=== PATIENT | female | born 1950 ===

== ENCOUNTER 2017-11-22 10:50 | Emergency (ER) | payer BC ==
[2017-11-22 10:57] VITALS: TEMP 98.1
[2017-11-22 12:34] VITALS: RESP 18
[2017-11-22 12:47] VITALS: BP 133/91; PULSE 76; O2SAT 98
--- NOTE | 2017-11-22 15:28 | ED PDOC ---
HPI: Back Time Seen by Provider: 11/22/17 11:20 Chief Complaint (Nursing): Back Pain Chief Complaint (Provider): Back Pain History Per: Patient History/Exam Limitations: no limitations Onset/Duration Of Symptoms: Days Current Symptoms Are (Timing): Still Present Quality Of Discomfort: "Pain" Associated Symptoms: None Exacerbating Factor(s): Movement Additional History Per: Family ( at bedside) Additional Complaint(s): 67 year old female with a history of sciatica for the past 4 years presents to the ED for evaluation of right lower back pain that radiates into the right leg. Patient took Duexis at 6am without any relief, promoting her to visit the ED. Denies fall, trauma, abdominal pain, chest pain, fever, chills, nausea, vomiting, diarrhea, urinary symptoms, saddle anesthesia, weakness/numbness, and incontinence. Patient states her current symptoms are consistent with prior sciatica flares in the past. PMD: Mehdi Mendoza Past Medical History Reviewed: Historical Data, Nursing Documentation, Vital Signs Vital Signs: Last Vital Signs Temp 98.1 F 11/22/17 10:56 Pulse 76 11/22/17 12:28 Resp 18 11/22/17 12:28 BP 133/91 H 11/22/17 12:28 Pulse Ox 98 11/22/17 12:28 - Medical History Other PMH: sciatica - Surgical History Surgical History: No Surg Hx - Family History Family History: States: Unknown Family Hx - Social History Current smoker - smoking cessation education provided: No Alcohol: None Drugs: Denies - Home Medications Home Medications: Ambulatory Orders Medication Instructions Recorded Acetaminophen [Acetaminophen 8 650 mg PO Q8 #24 tablet.er 11/22/17 Hour] - Allergies Allergies/Adverse Reactions: Allergies Allergy/AdvReac Type Severity Reaction Status Date / Time No Known Allergies Allergy Verified 11/22/17 11:01 Review of Systems ROS Statement: Except As Marked, All Systems Reviewed And Found Negative Constitutional: Negative for: Fever, Chills Cardiovascular: Negative for: Chest Pain Gastrointestinal: Negative for: Nausea, Vomiting, Abdominal Pain, Diarrhea Genitourinary Female: Negative for: Incontinence Musculoskeletal: Positive for: Back Pain (right lower-side), Leg Pain (right) Physical Exam - Reviewed Nursing Documentation Reviewed: Yes Vital Signs Reviewed: Yes - Physical Exam Comments: GENERAL APPEARANCE: Patient is awake, alert, oriented x 3, in no acute distress , resting comfortably. SKIN: Warm, dry; (-) cyanosis. EYES: (-) conjunctival pallor. ENMT: Mucous membranes moist. NECK: Supple, FROM (-) tenderness, (-) stiffness, (-) lymphadenopathy. CHEST AND RESPIRATORY: (-) rales, (-) rhonchi, (-) wheezes; breath sounds equal bilaterally. Speaking in full sentences, respirations even and nonlabored. HEART AND CARDIOVASCULAR: (-) irregularity; (-) murmur, (-) gallop. ABDOMEN AND GI: Soft; (-) tenderness; (-) palpable mass (-) distention (-) guarding. BACK: (+) right paralumbar tenderness, (+) right sided sciatica notch tenderness, (-) direct bony tenderness, (-) deformity. (+)Straight leg raise at 15 degrees of the right leg, (-) SLR on the left. EXTREMITIES: (-) deformity. Distal pulses good bilaterally. NEURO AND PSYCH: Mental status as above. Intact sensation bilaterally; normal strength in extension of the knees, plantar and dorsiflexion of the toes. Gait steady, speech clear. (-) facial asymmetry (-) facial droop - ECG O2 Sat by Pulse Oximetry: 98 (RA) Pulse Ox Interpretation: Normal Medical Decision Making Medical Decision Making: Time: 1159 Initial Impression: acute on chronic back pain, sciatica, radiculopathy of the right lower extremity Initial Plan: --Ultram 50mg (Patient not driving home) --Valium 5mg --Reevaluation Time: 1315 Repeat BP: 133/91 Repeat HR: 76 On revaluation, patient reports improvement of symptoms. Patient remains awake, alert, non toxic appearing. On exam, neck is supple, lungs are clear, abdomen is soft and non tender. Ambulatory in ED with steady, unassisted gait. VSS, stable for discharge. Advised to follow up with primary care physician in 1-2 days without fail. Advised to take medication as prescribed. Return to the emergency room at any time for any new or worsening symptoms. Patient states she fully agrees with and understands discharge instructions. States that she agrees with the plan and disposition. Verbalized and repeated discharge instructions and plan. I have given the patient opportunity to ask any additional questions. Scribe Attestation: Documented by Jacque Enriquez, acting as a scribe for Roxane Acevedo PA-C Provider Scribe Attestation: All medical record entries made by the Scribe were at my direction and personally dictated by me. I have reviewed the chart and agree that the record accurately reflects my personal performance of the history, physical exam, medical decision making, and the department course for this patient. I have also personally directed, reviewed, and agree with the discharge instructions and disposition. Disposition - Clinical Impression Clinical Impression: Back pain, Sciatica - Patient ED Disposition Is Patient to be Admitted: No Counseled Patient/Family Regarding: Diagnosis, Need For Followup, Rx Given - Disposition Referrals: David Florian III, MD [Staff Provider] - Mehdi Mendoza MD [Staff Provider] - Disposition: Routine/Home Disposition Time: 13:12 Condition: STABLE Additional Instructions: FOLLOW UP WITH PMD/ORTHO IN 1-2 DAYS WITHOUT FAIL. RETURN TO ED WITH ANY NEW OR WORSENING SYMPTOMS. CONTINUE USE OF DUEXIS AT HOME. USE RX FOR ADDITIONAL PAIN CONTROL. Prescriptions: Acetaminophen [Acetaminophen 8 Hour] 650 mg PO Q8 #24 tablet.er Instructions: Sciatica, Low Back Pain (DC), Sciatica Exercises Forms: [employer] (French), [facility] ED School/Work Excuse Print Language: MACEDONIAN - POA Present On Arrival: None
== END 2017-11-22 13:40 | disposition home or self-care (01) ==
LOC: H.ER 10:50
DX: M54.31 Sciatica, right side (principal); G89.29 Other chronic pain